=== PATIENT | female | born 1990 | race Two or more races ===

== ENCOUNTER 2024-06-05 09:42 | Observation (INO) | payer MEDICAID, OTHER ==
--- NOTE | 2024-06-05 11:50 | DVH ---
LIMITED OB ULTRASOUND > 14 WKS: HISTORY: VAGINAL BLEEDING TECHNIQUE: Multiple real-time grayscale images of the gravid uterus with duplex Doppler color flow an d M-mode spectral analysis. TRANSDUCER: TA FINDINGS: IUP single live fetus at 28 weeks 1 day based on composite averages of the BPD, head circumference, abdominal circumference and femur length Estimated weight 1197 grams heart rate 150 beats per minute EM is adeqaute Cervix is closed 4cm Cephalic Presentation Grade II posterior Placenta without previa or abruption. IMPRESSION: IUP single live fetus at 28 weeks 1 day AUA corresponding to an MELL of 08-27-24
[2024-06-05] MEDS ORDERED: PREN-96 PO (11:54)
--- NOTE | 2024-06-05 12:08 | DVHDS2 ---
Physician Discharge Progress N Final Diagnosis: ptl Operations or Procedures: Operations or Procedures nst,sono Condition on Discharge: Good Disposition: Home Discharge Instructions: Diet: Regular Activity: No Restrictions, As Tolerated Medications: na Follow Up Care: Specialist: 1w Discharge Statement: "Patient was advised to return to the ER or call 911 if any headaches, dizziness, shortness of breath, chest pain, abdominal pain, bleeding, fevers, or worsening of medical condition. Patient was counseled about treatment plan, medications, possible side effects, patientverbalized understanding. All questions were answered to the best of my ability. This discharge took greater then 30 minutes in planning, reviewing documentation, counseling the patient, and discussing with other team members." RINA PETERSON DO Jun 05, 2024 12:08
[2024-06-05 12:21] LABS: Amphetamine Screen, Urine Neg (NEGATIVE); Barbiturate Scree,Urine Neg (NEGATIVE); Benzodiazephine Screen, Urine Neg (NEGATIVE); Cannabinoid Screen, Urine Neg (NEGATIVE); Cocaine Screen, Urine Neg (NEGATIVE); Opiate Scree,Urine Neg (NEGATIVE); Phencyclidine Screen, Urine Neg (NEGATIVE)
== END 2024-06-05 12:17 | disposition home or self-care (01) ==
LOC: LDRP 09:42
PROVIDERS: ADMIT Obstetrics & Gynecology; ATTEND Obstetrics & Gynecology
DX: O60.02 Preterm labor without delivery, second trimester (principal); O46.92 Antepartum hemorrhage, unspecified, second trimester; Z3A.26 26 weeks gestation of pregnancy; Z79.899 Other long term (current) drug therapy
CPT/HCPCS: 59025; 76805; 80307; 81002; 94760; G0378